=== PATIENT | female | born 1950 | race Caucasian/White ===

== ENCOUNTER 2023-12-15 10:29 | Emergency (ER) | payer MEDICARE, OTHER, SELFPAY ==
[2023-12-15 10:31] VITALS: BP 113/80
[2023-12-15 10:50] VITALS: BMI 26.7
[2023-12-15 10:59] LABS: % Basophils 0.3 % (0-2); % Eosinophils 0.6 % (0-6); % Immature Granulocytes 0.4 % (0-0.5); % Lymphocytes 15.3 % (20.5-51.1); % Monocytes 7.9 % (1.7-9.3); % Neutrophils 75.5 % (42.2-75.2); Absolute Eosinophils 0.1 10^3/uL (0-0.7); Absolute Immature Granulocytes 0.1 10^3/uL (0-0.05); Absolute Lymphocytes 2.1 10^3/uL (1.2-3.4); Absolute Monocytes 1.1 10^3/uL (0.1-0.6); Absolute Neutrophils 10.5 10^3/uL (1.4-6.5); Hematocrit 40.1 % (37.0-47.0); Mean Corp Hgb Conc. 34.9 g/dL (33.0-37.0); Mean Corpuscular Volume 85.9 fL (81.0-99.0); Mean Platelet Volume 8.8 fL (7.4-10.4); Nucleated Red Blood Cells % 0 %; Platelet Count 314 10^3/uL (130-400); Red Blood Cell Count 4.67 10^6/uL (4.20-5.40); Red Cell Dist. Width 12.2 % (11.5-14.5); White Blood Cell Count 13.9 10^3/uL (4.8-10.8)
[2023-12-15 11:07] LABS: Urine Albumin Trace (Neg - Trace); Urine Bilirubin 1+ (Negative); Urine Character Clear (Clear); Urine Color Yellow; Urine Glucose Negative (Negative); Urine Ketone Trace (Negative); Urine Leukocyte 1+ (Negative); Urine Nitrite Negative (Negative); Urine Occult Blood 2+ (Negative); Urine Specific Gravity 1.025 (<1.030); Urine Urobilinogen 1+ (Neg - 1+)
[2023-12-15 11:18] LABS: ALT (SGPT) 19 U/L (0-35); AST (SGOT) 22 U/L (14-36); Albumin 4.5 g/dl (3.5-5.0); Alkaline Phosphatase 92 U/L (38-126); Blood Urea Nitrogen 15 mg/dl (7-17); Calcium 9.6 mg/dl (8.4-10.2); Carbon Dioxide 21 mmol/L (22-30); Chloride 105 mmol/L (98-107); Estimated Creatinine Clearance 64 ml/min; Glucose 119 mg/dl (70-99); Lipase 76 U/L (23-300); Potassium 4.3 mmol/L (3.5-5.1); Sodium 133 mmol/L (135-145); Total Bilirubin 1.1 mg/dl (0.2-1.3); Total Protein 7.4 g/dl (6.3-8.2); eGFR > 60.00
--- NOTE | 2023-12-15 11:27 | ED.GENMED ---
History of Present Illness
General
Chief Complaint: Abdominal Symptoms
Source: patient
Exam Limitations: none
Time Seen by Provider: 12/15/23 10:41
Nursing documentation reviewed up to this point in time: agreed with
Travel History
Have you had any contact with someone who has COVID-19?: No
Do you have any symptoms of coronavirus? Fever > 100 degrees, chills, cough, shortness of breath, sore throat, loss of taste or smell, muscle aches, or headache?: No
History of Present Illness
History of Present Illness:
pt is a 73 y/o F with h/o HTN, HLD, diverticulitis x 1 episode treated with outpatient abx
here with lower abd cramping that started yesterday reminding her of previous divetic
she had a BM but not a usual one, was a little less than normal
she continued to have the cramping in the lower abdomen and didn't get sleep
no diarrhea but had some mucusy stool today
no fever, nauesa, vomiting, urinarys ytpmosm
called her PCP who told her to come for CT.
Past History
Past History
ED Past Medical History: NIDDM, Hypothyroidism and Psychiatric (Bipolar disease)
ED Past Surgical History: Appendectomy, Gynecological (Hysterectomy), Orthopedic (Right shoulder surgery), Tonsilectomy and Other (Acoustic neuroma removal, recent cataract surgery)
Social History
Tobacco: Non-smoker
Alcohol: None
Drug: None
Personal:
Living: with family
Employment: Employed (Nurse at [employer])
Family History
Family History: Diabetes
Review of Systems
Review of Systems
Allergies reviewed?: Yes
All Other Systems: Not applicable
Phy Exam
Physical Exam
Physical Exam:
GENERAL: Alert , in no apparent distress
EYE: pupils equal and reactive
NECK: Supple
ENT: o/p clr, mmm.
CARDIAC: Regular rate and rhythm .
LUNGS: Clear breath sounds bilaterally, no acute respiratory distress, no wheezes/rales/rhonchi
ABDOMEN: Soft, mild lower abd quad tendenress, no r/g, no cvat, normal bowel sounds
NEUROLOGICAL: Alert and oriented, no focal neuro deficits
SKIN: Warm and dry, skin intact.
MUSCULOSKELETAL: No edema, well perfused.
PSYCH: Normal and appropriate interaction.
Course
Orders/Labs/Results
Orders:
Orders
12/15/23 10:53
Complete Blood Count/With Diff Urgent
Comprehensive Metabolic Panel Urgent
Lipase Urgent
12/15/23 11:02
Urinalysis Reflex To Culture Urgent
Date Specimen was Collected: 12/15/23
Time Specimen was Collected: 11:00
Urine Microscopic Reflex Cult Urgent
Urine Culture Urgent
GRIFFIN Source: U
Specimen Description:
Date Specimen was Collected: 12/15/23
Time Specimen was Collected: 11:00
12/15/23 11:17
CT Abd/Pel (IV only)-DH only Urgent
Comment:
Reason For Exam: lower abd pain, h/o divertic
0.9% Sodium Chloride 1000 ml [Nss] 1,000 ml IV BOLUS
Ketorolac [Toradol] 15 mg IV NOW STA
12/15/23 12:31
LevoFLOXacin [Levaquin] 500 mg PO NOW STA
12/15/23 12:32
MetroNIDAZOLE [Flagyl] 500 mg PO NOW STA
12/15/23 12:36
Tramadol HCl [Ultram] 50 mg PO NOW STA
Abnormal Lab Results
12/15/23 12/15/23
10:53 11:02
WBC 13.9 H 10^3/uL
(4.8-10.8)
Abs Immat Gran (auto) 0.1 H 10^3/uL
(0-0.05)
Absolute Neuts (auto) 10.5 H 10^3/uL
(1.4-6.5)
Absolute Monos (auto) 1.1 H 10^3/uL
(0.1-0.6)
Neutrophils % 75.5 H %
(42.2-75.2)
Lymphocytes % 15.3 L %
(20.5-51.1)
Sodium 133 L mmol/L
(135-145)
Carbon Dioxide 21 L mmol/L
(22-30)
Glucose 119 H mg/dl
(70-99)
Urine Ketones Trace A
(Negative)
Ur Occult Blood Reflex 2+ A
(Negative)
Urine Bilirubin 1+ A
(Negative)
Leukocyte Esterase Rfl 1+ A
(Negative)
Urine RBC 3-6 A /HPF
(0-2)
Urine Bacteria (Reflex) Few A
(Negative)
12/15/23 10:53
12/15/23 10:53
Vital Signs
Initial and Last Documented VS:
Initial Vital Signs
Temp Pulse Resp BP Pulse Ox
98.2 F 108 16 113/80 98
12/15/23 10:31 12/15/23 10:31 12/15/23 10:31 12/15/23 10:31 12/15/23 10:31
Last Documented Vital Signs
Temp Pulse Resp BP Pulse Ox
98.2 F 96 16 118/73 97
12/15/23 10:31 12/15/23 11:46 12/15/23 11:46 12/15/23 11:46 12/15/23 11:46
MDM/Problems Addressed
Differential Diagnosis Includes:
diverticulitis, uti
MDM/Problems Addressed:
73 y/o F with h/o diverticulitis one other episode
lower abd cramping reminding her of her divertic
some mucusy nonbloody stool
no fever
minimal lower abdominal tenderness
otherwise normal exam
wbc 13.9
ua iwth some trace signs of infection but no symptoms
ct shows diveritculitis no performation
pain was not controlled with toradol but pt says 3/10 level
she has tolerated tramadol before
will give 1 dose
levaquin and flagyl tolerated preivously
return precautions.l
stable acute exacerbation of divertic, for outpatietn managmenet.
*Critical Care Note
Total Time (30-74mins, 75-104mins- exclusive of procedures): Not Applicable
ED Attending Note
-
Portions of this chart may have been created with voice recognition software.� Occasional wrong word or��sound alike� substitutions may have occurred due to the inherent limitations of voice recognition software.
Discharge Plan
Departure
Patient Disposition: Home (Routine Discharge)
Date of Disposition: 12/15/23
Time of Disposition: 12:51
Patient with high blood pressure during this ER visit?: No
Condition: Fair
Covid-19: Not Applicable
Discharge Problem:
Diverticulitis
Instructions: Clear Liquid Diet, Diverticulitis (DC)
Prescriptions:
New
metronidazole 500 mg tablet
500 mg PO Q8H 7 Days Qty: 21 0RF
levofloxacin 500 mg tablet
500 mg PO DAILY Qty: 6 0RF
No Action
lamotrigine 25 MG tablet, chewable dispersible
100 mg PO QPM
levothyroxine [Synthroid] 100 MCG tablet
150 mcg PO DAILY
metformin 500 MG tablet
250 mg PO .DAILY IN A.M.
pediatric multivitamin 1 EACH tablet,chewable
1 ea PO DAILY
docusate sodium 100 MG capsule
100 mg PO BID
zinc 50 MG tablet
50 mg PO DAILY
sertraline 50 MG tablet
50 mg PO DAILY
cholecalciferol (vitamin D3) [Vitamin D3] 400 UNITS tablet
2,000 units PO DAILY
rosuvastatin 10 MG tablet
10 mg PO QPM
coenzyme Q74-sbccocd E 1 CAP capsule
1 cap PO DAILY
omega 7-eoh-vmp-fish oil [Fish Oil] 1 EACH capsule
1 ea PO DAILY
Metformin HCl
500 mg PO QPM
levofloxacin 500 mg tablet
500 mg PO DAILY 6 Days Qty: 6 0RF
metronidazole 500 mg tablet
500 mg PO TID Qty: 20 0RF
tizanidine [Zanaflex] 4 mg capsule
4 mg PO Q8H PRN (Reason: muscle spasticity) Qty: 7 0RF
Referrals:
Gracy Qurioz CRNP [Family Provider] -
Activity Restrictions/Additional Instructions:
You have diverticulitis. Take Levaquin once a day starting tomorrow for 6 more days Flagyl 3 times a day starting tonight. Eat clear liquid diet over the next 24 hours. For pain you can use Tylenol and ibuprofen. Follow-up with your doctor next
week. Return to the ER for worsening symptoms like fever, severe worsening pain, vomiting, severe diarrhea or any concerns
Interventions
Interventions:
*Risk Screen - Suicide Last Done: 12/15/23 13:08
*General Assessment Last Done: 12/15/23 10:50
*Neglect/Abuse Screening Last Done: 12/15/23 10:50
*ED COVID-19 Vaccine History Last Done: 12/15/23 10:31
*Nursing Disposition Last Done: 12/15/23 13:08
XI-Aiizgd-Kefplzrkko Assessment Last Done: 12/15/23 10:50
Discharge Date and Time
Discharge Date/Time: 12/15/23 13:09
[2023-12-15 11:36] LABS: Urine Bacteria Few (Negative)
[2023-12-15] MEDS: NSS 1000 IV (11:42)
[2023-12-15] MEDS: TORADOL 15 MG IV (11:43)
[2023-12-15 11:46] VITALS: BP 118/73
[2023-12-15] MEDS: LEVAQUIN 500 MG PO (12:40)
[2023-12-15] MEDS: ULTRAM 50 MG PO (12:40)
[2023-12-15] MEDS: FLAGYL 500 MG PO (12:41)
== END 2023-12-15 13:09 | disposition home or self-care (01) ==
LOC: EMR 10:29
PROVIDERS: EMERGENCY PHYSICIAN Emergency Medicine; FAMILY PHYSICIAN Nurse Practitioner Primary Care
DX: K57.32 Diverticulitis of large intestine without perforation or abscess without bleeding (principal); I10 Essential (primary) hypertension; E78.5 Hyperlipidemia, unspecified
CPT/HCPCS: 99285; 96374; 96361; 74177; 80053; 81003; 81015; 83690; 85025; 87086; Q9967

== ENCOUNTER → 2024-03-25 06:20 | Day surgery (SDC) | payer MEDICARE, OTHER, SELFPAY ==
[2024-03-25 07:17] LABS: Glucose - Point of Care 113 mg/dl (70-99)
== END ==
LOC: GI 06:20
PROVIDERS: ATTENDING PHYSICIAN Internal Medicine
DX: K57.32 Diverticulitis of large intestine without perforation or abscess without bleeding (principal); K57.30 Diverticulosis of large intestine without perforation or abscess without bleeding; K64.8 Other hemorrhoids; K63.5 Polyp of colon; K62.3 Rectal prolapse; Z09 Encounter for follow-up examination after completed treatment for conditions other than malignant neoplasm; Z87.19 Personal history of other diseases of the digestive system
CPT/HCPCS: 45385; 88305; 82962

== ENCOUNTER 2024-03-27 12:00 | Emergency (ER) | payer MEDICARE, OTHER, SELFPAY ==
[2024-03-27] VITALS (7 sets, daily range): BP systolic 119–142; BP diastolic 70–81; BMI 26.7
[2024-03-27 13:12] LABS: % Basophils 0.4 % (0-2); % Eosinophils 1.5 % (0-6); % Immature Granulocytes 0.4 % (0-0.5); % Lymphocytes 26.9 % (20.5-51.1); % Monocytes 6.5 % (1.7-9.3); % Neutrophils 64.3 % (42.2-75.2); Absolute Eosinophils 0.1 10^3/uL (0-0.7); Absolute Lymphocytes 2.3 10^3/uL (1.2-3.4); Absolute Monocytes 0.6 10^3/uL (0.1-0.6); Absolute Neutrophils 5.4 10^3/uL (1.4-6.5); Hemoglobin 13.3 g/dL (12.0-16.0); Mean Corpuscular Hgb 29.6 pg (27.0-31.0); Mean Corpuscular Volume 84.6 fL (81.0-99.0); Nucleated Red Blood Cells % 0 %; Platelet Count 274 10^3/uL (130-400); Red Blood Cell Count 4.49 10^6/uL (4.20-5.40); Red Cell Dist. Width 12.3 % (11.5-14.5); White Blood Cell Count 8.5 10^3/uL (4.8-10.8)
[2024-03-27 13:14] LABS: Blood Urea Nitrogen 12 mg/dl (7-17); Calcium 9.5 mg/dl (8.4-10.2); Carbon Dioxide 23 mmol/L (22-30); Chloride 108 mmol/L (98-107); Estimated Creatinine Clearance 85 ml/min; Glucose 102 mg/dl (70-99); Lipase 71 U/L (23-300); Sodium 137 mmol/L (135-145); eGFR > 60.00
--- NOTE | 2024-03-27 13:32 | ED.GENMED ---
History of Present Illness
General
Chief Complaint: Abdominal Symptoms
Source: patient
Exam Limitations: none
Time Seen by Provider: 03/27/24 13:18
History of Present Illness
History of Present Illness:
73-year-old female presents complaining of persistent left lower quadrant pain starting 2 days ago. She had a colonoscopy 2 days ago. Was sent in by GI for CT scan. She notes persistent kind of she notes persistent left lower quadrant abdominal
pain sharp in nature. No urinary symptoms. No fever. No nausea or vomiting. She is moving her bowels. She admitted to have some drops of blood in her bowel when she moved her bowels 2 days ago
Past History
Past History
ED Past Medical History: NIDDM, Hypothyroidism and Psychiatric (Bipolar disease)
ED Past Surgical History: Appendectomy, Gynecological (Hysterectomy), Orthopedic (Right shoulder surgery), Tonsilectomy and Other (Acoustic neuroma removal, recent cataract surgery)
Social History
Tobacco: Non-smoker
Alcohol: None
Drug: None
Personal:
Living: with family
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
Family History
Family History: Diabetes
Phy Exam
Physical Exam
Physical Exam:
General: Well-appearing female no acute respiratory distress
HEENT: Normocephalic atraumatic
Heart: Regular rate and rhythm no murmurs
Lungs: Clear no wheeze or rales
Abdomen soft tender to left lower quadrant no guarding rebound normal bowel sounds
Extremities: No cyanosis
Course
Orders/Labs/Results
Orders:
Orders
03/27/24 12:38
Basic Metabolic Panel Urgent
Complete Blood Count/With Diff Urgent
Lipase Urgent
03/27/24 13:45
CT Abd/pel W Iv And Oral Contr Urgent
Comment:
Reason For Exam: lower abdominal pain, recent colonoscopy
Iohexol [Omnipaque] See Protocol PO NOW STA
03/27/24 13:46
0.9% Sodium Chloride 1000 ml [Nss] 1,000 ml IV BOLUS
03/27/24 13:55
Urinalysis Reflex To Culture Urgent
Date Specimen was Collected: 03/27/24
Time Specimen was Collected: 13:54
Urine Microscopic Reflex Cult Urgent
Abnormal Lab Results
03/27/24 03/27/24
12:38 13:55
Chloride 108 H mmol/L
(98-107)
Glucose 102 H mg/dl
(70-99)
Leukocyte Esterase Rfl Trace A
(Negative)
03/27/24 12:38
03/27/24 12:38
Vital Signs
Initial and Last Documented VS:
Initial Vital Signs
Temp Pulse Resp BP Pulse Ox
98.0 F 78 16 141/81 97
03/27/24 12:01 03/27/24 12:01 03/27/24 12:01 03/27/24 12:01 03/27/24 12:01
Last Documented Vital Signs
Temp Pulse Resp BP Pulse Ox
98.0 F 74 13 142/80 97
03/27/24 12:01 03/27/24 17:00 03/27/24 17:00 03/27/24 17:00 03/27/24 17:00
MDM/Problems Addressed
Differential Diagnosis Includes:
Left lower quadrant tenderness and pain following colonoscopy 2 days ago. Sent in by GI for CT scan with oral and IV contrast. This was ordered. Labs pending
Consider diverticulitis versus UTI versus perforation
*Critical Care Note
Total Time (30-74mins, 75-104mins- exclusive of procedures): Not Applicable
Update Note
Update Note:
CT demonstrates acute uncomplicated mild diverticulitis. Discussed with patient and GI. Will send patient home on Augmentin. Stable for discharge
ED Attending Note
-
Portions of this chart may have been created with voice recognition software.� Occasional wrong word or��sound alike� substitutions may have occurred due to the inherent limitations of voice recognition software.
Discharge Plan
Departure
Patient Disposition: Home (Routine Discharge)
Date of Disposition: 03/27/24
Time of Disposition: 17:48
Patient with high blood pressure during this ER visit?: No
Discharge Problem:
Acute diverticulitis
Instructions: Diverticulitis (DC)
Prescriptions:
New
amoxicillin-pot clavulanate 875-125 mg tablet
1 tab PO BID Qty: 20 0RF
No Action
metformin 500 MG tablet
500 mg PO BID
docusate sodium 100 MG capsule
100 mg PO BID
sertraline 50 MG tablet
50 mg PO DAILY
rosuvastatin 10 MG tablet
10 mg PO QPM
Theragen Tablet
1 tab PO QPM
acetaminophen [Tylenol Extra Strength] 500 mg Tablet
1,000 mg PO DAILYPRN PRN (Reason: mild pain)
calcium carbonate [Calcium 600] 600 mg calcium (1,500 mg) Tablet
600 mg PO QPM
lisinopril 10 mg Tablet
10 mg PO DAILY
levothyroxine 150 mcg Tablet
150 mcg PO MOTUWETHFR
levothyroxine 150 mcg Tablet
75 mcg PO SA
estradiol 0.01 % (0.1 mg/gram) Cream
1 applic VAGINAL DAILYPRN PRN (Reason: irritation)
lamotrigine 100 mg Tablet
100 mg PO QPM
coenzyme Q10 [CoQ-10] 30 mg Capsule
30 mg PO QPM
cholecalciferol (vitamin D3) [Vitamin D3] 25 mcg (1,000 unit) Tablet
25 mcg PO BID
Trulicity 0.75 mg/0.5 mL Pen Injector
0.75 mg SC WE
Referrals:
Gracy Quiroz CRNP [Family Provider] -
Activity Restrictions/Additional Instructions:
Drink plenty clear liquids. Use Augmentin as directed. Return if worse otherwise follow-up with your GI doctor
Interventions
Interventions:
*Risk Screen - Suicide Last Done: 03/27/24 12:27
*General Assessment Last Done: 03/27/24 12:01
*Neglect/Abuse Screening Last Done: 03/27/24 12:27
ED- Fall Risk Assessment Last Done: 03/27/24 12:27
*ED COVID-19 Vaccine History Last Done: 03/27/24 12:01
OM-Shpzww-Cjcvawalwu Assessment Last Done: 03/27/24 12:27
Discharge Date and Time
Print Language: KOREAN
[2024-03-27] MEDS: OMNIPAQUE 50 ML PO (13:51)
[2024-03-27] MEDS: NSS 1000 IV (13:52)
[2024-03-27 14:39] LABS: Urine Albumin Negative (Neg - Trace); Urine Bilirubin Negative (Negative); Urine Character Clear (Clear); Urine Color Yellow; Urine Glucose Negative (Negative); Urine Ketone Negative (Negative); Urine Leukocyte Trace (Negative); Urine Nitrite Negative (Negative); Urine Occult Blood Negative (Negative); Urine Urobilinogen Negative (Neg - 1+)
[2024-03-27 14:53] LABS: Urine Red Blood Cell 0-2 /HPF (0-2); Urine White Cell 0-2 /HPF (0-5)
== END 2024-03-27 18:03 | disposition home or self-care (01) ==
LOC: EMR 12:00
PROVIDERS: Physician Assistant; EMERGENCY PHYSICIAN Emergency Medicine; FAMILY PHYSICIAN Nurse Practitioner Primary Care
DX: K57.92 Diverticulitis of intestine, part unspecified, without perforation or abscess without bleeding (principal); E11.9 Type 2 diabetes mellitus without complications; E03.9 Hypothyroidism, unspecified; F31.9 Bipolar disorder, unspecified; Z83.3 Family history of diabetes mellitus; Z90.49 Acquired absence of other specified parts of digestive tract; Z90.710 Acquired absence of both cervix and uterus
CPT/HCPCS: 99284; 96360; 74177; 80048; 81003; 81015; 83690; 85025; Q9967

== ENCOUNTER 2024-05-09 08:24 | Emergency (ER) | payer MEDICARE, OTHER, SELFPAY ==
[2024-05-09 08:27] VITALS: BP 137/93
[2024-05-09] MEDS: ZOFRAN 4 MG IV (09:18)
[2024-05-09] MEDS: PROTONIX IV 40 MG IV (09:18)
[2024-05-09] MEDS: DILAUDID 0.5 MG IV (09:18)
[2024-05-09] MEDS: NSS 1000 IV (09:18)
--- NOTE | 2024-05-09 09:22 | ED.GENMED ---
History of Present Illness
General
Chief Complaint: Abdominal Pain
Source: patient, previous radiology exam and previous hospital records
Exam Limitations: none
Time Seen by Provider: 05/09/24 08:30
Nursing documentation reviewed up to this point in time: agreed with
History of Present Illness
History of Present Illness:
74-year-old female history of diverticulitis 3 prior episodes status post appendectomy presents with lower abdominal pain cramping and nausea symptoms initially mild improved and worsened last night feels indigestion, possibly felt chilled with
fevers, occasionally uses MiraLAX to move her bowels, no blood in her stools no shortness of breath
After one of her prior episode she saw her cafe cook performed a colonoscopy
Past History
Past History
ED Past Medical History: NIDDM, Hypothyroidism and Psychiatric (Bipolar disease)
ED Past Surgical History: Appendectomy, Gynecological (Hysterectomy), Orthopedic (Right shoulder surgery), Tonsilectomy and Other (Acoustic neuroma removal, recent cataract surgery)
Social History
Tobacco: Non-smoker
Alcohol: None
Drug: None
Personal:
Living: with family
Employment: Employed (Nurse at [employer])
Family History
Family History: Diabetes
Review of Systems
Review of Systems
All Other Systems: Not applicable
Constitutional: Reports fever and chills
EENT: Reports no symptoms
Respiratory: Reports no symptoms
ABD/GI: Reports abdominal pain, nausea and pain
: Reports no symptoms
Musculoskeletal: Reports no symptoms
Skin: Reports no symptoms
Neurological: Reports no symptoms
Endocrine: Reports no symptoms
Phy Exam
Physical Exam
Physical Exam:
Physical Exam
General: no apparent distress, not acutely ill
Neck:no jaundice
Heart: s1/s2 regular rate and rhythm, no murmur. equal radial pulses.
Lungs: no acute respiratory distress. clear bilaterally
Abdomen: Soft localized tenderness in the left lower abdomen
Neuro: alert and oriented. no focal neurological deficits
Skin: no rash
Psychiatric: well kept. interactive and cooperative
Extremities: no edema
Course
Orders/Labs/Results
Orders:
Orders
05/09/24 09:07
Electrocardiogram (*1) Stat
Reason for Study: Abdominal Pain
CT Abd/Pel (IV only)-[facility] only Urgent
Comment:
Reason For Exam: llq pain
EKG- Treatment ONCE
IV Insert/Care/Rem.- Treatment PRN
0.9% Sodium Chloride 1000 ml [Nss] 1,000 ml IV BOLUS
HYDROmorphone [Dilaudid] 0.5 mg IV NOW STA
Ondansetron Injectable [Zofran] 4 mg IV NOW STA
Pantoprazole [Protonix IV] 40 mg IV NOW STA
05/09/24 09:16
Complete Blood Count/With Diff Urgent
Comprehensive Metabolic Panel Urgent
Abnormal Lab Results
05/09/24
09:16
WBC 12.5 H 10^3/uL
(4.8-10.8)
Absolute Neuts (auto) 9.3 H 10^3/uL
(1.4-6.5)
Absolute Monos (auto) 1.0 H 10^3/uL
(0.1-0.6)
Lymphocytes % 15.7 L %
(20.5-51.1)
Chloride 109 H mmol/L
(98-107)
Carbon Dioxide 20 L mmol/L
(22-30)
Glucose 128 H mg/dl
(70-99)
05/09/24 09:16
05/09/24 09:16
Vital Signs
Initial and Last Documented VS:
Initial Vital Signs
Temp Pulse Resp BP Pulse Ox
99.5 F 117 16 137/93 98
05/09/24 08:27 05/09/24 08:27 05/09/24 08:27 05/09/24 08:27 05/09/24 08:27
Last Documented Vital Signs
Temp Pulse Resp BP Pulse Ox
99.5 F 65 16 124/70 95
05/09/24 08:27 05/09/24 10:00 05/09/24 10:00 05/09/24 10:09 05/09/24 10:10
MDM/Problems Addressed
Differential Diagnosis Includes:
Diverticulitis, bowel obstruction nonspecific abdominal pain urinary tract pathology
MDM/Problems Addressed:
Abdominal pain
Chronic conditions affecting care: Previous abdomnial surgery
Acute Exacerbation and/or Progression of Chronic Illness:
Diverticular disease
Acute Exacerbation and/or Progression of Chronic Illness: Previous abdomnial surgery
*Radiology
Radiology exam reviewed: preliminary read by ED provider and radiology read reviewed
*Pulse Oximetry
Patient hypoxic: no
*EKG
Interpreted by ED Provider?: Yes
Interpretation: normal
Comparison EKG: no comparison EKG present
Heart Rate: 78
Rate: normal
Ischemia: no ischemia
*Sandwich Maker Interpretation
Rate: normal
Interpretation: normal
Heart Rate: 78
Rhythm: sinus
*Critical Care Note
Total Time (30-74mins, 75-104mins- exclusive of procedures): Not Applicable
Update Note
Update Note:
Update labs noted CAT scan noted patient appears comfortable reviewed results with patient tells me she does not really tolerate Levaquin and Flagyl she prefers Augmentin
I will give her the number of colorectal surgery to follow-up with, ER for worsening symptoms
ED Attending Note
-
Portions of this chart may have been created with voice recognition software.� Occasional wrong word or��sound alike� substitutions may have occurred due to the inherent limitations of voice recognition software.
Discharge Plan
Departure
Patient Disposition: Home (Routine Discharge)
Date of Disposition: 05/09/24
Time of Disposition: 10:41
Patient with high blood pressure during this ER visit?: No
Condition: Good
Discharge Problem:
Diverticulitis
Instructions: Diverticulitis (DC)
Prescriptions:
New
amoxicillin-pot clavulanate 875-125 mg tablet
1 tab PO Q12H Qty: 20 0RF
ondansetron 4 mg tablet,disintegrating
4 mg PO Q8H PRN (Reason: nausea and vomiting) Qty: 14 0RF
No Action
metformin 500 MG tablet
500 mg PO BID
docusate sodium 100 MG capsule
100 mg PO BID
sertraline 50 MG tablet
50 mg PO DAILY
rosuvastatin 10 MG tablet
10 mg PO QPM
Theragen Tablet
1 tab PO QPM
acetaminophen [Tylenol Extra Strength] 500 mg Tablet
1,000 mg PO DAILYPRN PRN (Reason: mild pain)
calcium carbonate [Calcium 600] 600 mg calcium (1,500 mg) Tablet
600 mg PO QPM
lisinopril 10 mg Tablet
10 mg PO DAILY
levothyroxine 150 mcg Tablet
150 mcg PO MOTUWETHFR
levothyroxine 150 mcg Tablet
75 mcg PO SA
estradiol 0.01 % (0.1 mg/gram) Cream
1 applic VAGINAL DAILYPRN PRN (Reason: irritation)
lamotrigine 100 mg Tablet
100 mg PO QPM
coenzyme Q10 [CoQ-10] 30 mg Capsule
30 mg PO QPM
cholecalciferol (vitamin D3) [Vitamin D3] 25 mcg (1,000 unit) Tablet
25 mcg PO BID
Trulicity 0.75 mg/0.5 mL Pen Injector
0.75 mg SC WE
amoxicillin-pot clavulanate 875-125 mg tablet
1 tab PO BID Qty: 20 0RF
Referrals:
Gracy Quiroz CRNP [Family Provider] -
Ish Esparza MD [Active] - Next open appointment
Activity Restrictions/Additional Instructions:
Tylenol or ibuprofen for pain
Antibiotics as prescribed, take with yogurt or a probiotic
Call Dr. Esparza or his associates from colorectal surgery to discuss your recurrent symptoms and arrange follow-up care
Interventions
Interventions:
*Risk Screen - Suicide Last Done: 05/09/24 08:27
*General Assessment Last Done: 05/09/24 08:27
*Neglect/Abuse Screening Last Done: 05/09/24 08:27
ED- Fall Risk Assessment Last Done: 05/09/24 09:22
*ED COVID-19 Vaccine History Last Done: 05/09/24 08:35
MQ-Qzsats-Rdomscyjwi Assessment Last Done: 05/09/24 08:36
Discharge Date and Time
Print Language: UKRAINIAN
[2024-05-09 09:26] LABS: % Basophils 0.2 % (0-2); % Immature Granulocytes 0.2 % (0-0.5); % Lymphocytes 15.7 % (20.5-51.1); % Monocytes 7.9 % (1.7-9.3); Absolute Eosinophils 0.1 10^3/uL (0-0.7); Absolute Neutrophils 9.3 10^3/uL (1.4-6.5); Hematocrit 37.7 % (37.0-47.0); Hemoglobin 13.3 g/dL (12.0-16.0); Mean Corp Hgb Conc. 35.3 g/dL (33.0-37.0); Mean Corpuscular Volume 84.9 fL (81.0-99.0); Mean Platelet Volume 8.8 fL (7.4-10.4); Nucleated Red Blood Cells % 0 %; Platelet Count 279 10^3/uL (130-400); Red Blood Cell Count 4.44 10^6/uL (4.20-5.40); Red Cell Dist. Width 12.3 % (11.5-14.5); White Blood Cell Count 12.5 10^3/uL (4.8-10.8)
[2024-05-09 09:38] LABS: ALT (SGPT) 18 U/L (0-35); AST (SGOT) 20 U/L (14-36); Albumin 4.3 g/dl (3.5-5.0); Alkaline Phosphatase 79 U/L (38-126); Blood Urea Nitrogen 10 mg/dl (7-17); Calcium 9.8 mg/dl (8.4-10.2); Carbon Dioxide 20 mmol/L (22-30); Chloride 109 mmol/L (98-107); Glucose 128 mg/dl (70-99); Potassium 4.1 mmol/L (3.5-5.1); Sodium 137 mmol/L (135-145); Total Bilirubin 0.8 mg/dl (0.2-1.3); Total Protein 6.8 g/dl (6.3-8.2); eGFR > 60.00
[2024-05-09 10:09] VITALS: BP 124/70
== END 2024-05-09 11:09 | disposition home or self-care (01) ==
LOC: EMR 08:24
PROVIDERS: EMERGENCY PHYSICIAN Emergency Medicine; FAMILY PHYSICIAN Nurse Practitioner Primary Care
DX: K57.92 Diverticulitis of intestine, part unspecified, without perforation or abscess without bleeding (principal); R11.0 Nausea; F31.9 Bipolar disorder, unspecified; E03.9 Hypothyroidism, unspecified; I10 Essential (primary) hypertension; E11.36 Type 2 diabetes mellitus with diabetic cataract; E78.5 Hyperlipidemia, unspecified; Z87.891 Personal history of nicotine dependence; Z87.442 Personal history of urinary calculi; Z79.84 Long term (current) use of oral hypoglycemic drugs; Z88.5 Allergy status to narcotic agent
CPT/HCPCS: 99285; 96375 ×2; 96361; 96374; 74177; 80053; 85025; 93005; Q9967

== ENCOUNTER → 2024-09-12 14:04 | Outpatient (REF) | payer MEDICARE, OTHER, SELFPAY | LOC: HWRAD 14:04 | PROVIDERS: ATTENDING PHYSICIAN Nurse Practitioner Primary Care | DX: M85.89 Other specified disorders of bone density and structure, multiple sites (principal) | CPT/HCPCS: 77080 ==

== ENCOUNTER → 2024-11-14 16:35 | Outpatient (REF) | payer MEDICARE, OTHER, SELFPAY ==
[2024-11-14 18:07] LABS: ALT (SGPT) 21 U/L (0-35); AST (SGOT) 23 U/L (14-36); Albumin 4.4 g/dl (3.5-5.0); Alkaline Phosphatase 68 U/L (38-126); Blood Urea Nitrogen 14 mg/dl (7-17); Calcium 9.8 mg/dl (8.4-10.2); Carbon Dioxide 27 mmol/L (22-30); Chloride 103 mmol/L (98-107); Glucose 80 mg/dl (70-99); Potassium 4.4 mmol/L (3.5-5.1); Sodium 136 mmol/L (135-145); Total Bilirubin 0.4 mg/dl (0.2-1.3); eGFR > 60.00
[2024-11-14 18:15] LABS: % Basophils 0.6 % (0-2); % Eosinophils 1.5 % (0-6); % Immature Granulocytes 0.5 % (0-0.5); % Lymphocytes 30.5 % (20.5-51.1); % Monocytes 7.3 % (1.7-9.3); % Neutrophils 59.6 % (42.2-75.2); Absolute Basophils 0.1 10^3/uL (0-0.2); Absolute Eosinophils 0.1 10^3/uL (0-0.7); Absolute Lymphocytes 2.6 10^3/uL (1.2-3.4); Absolute Monocytes 0.6 10^3/uL (0.1-0.6); Absolute Neutrophils 5.1 10^3/uL (1.4-6.5); Hematocrit 39.9 % (37.0-47.0); Hemoglobin 13.2 g/dL (12.0-16.0); Mean Corp Hgb Conc. 33.1 g/dL (33.0-37.0); Mean Corpuscular Hgb 29.4 pg (27.0-31.0); Mean Corpuscular Volume 88.9 fL (81.0-99.0); Mean Platelet Volume 9.2 fL (7.4-10.4); Nucleated Red Blood Cells % 0 %; Platelet Count 273 10^3/uL (130-400); Red Blood Cell Count 4.49 10^6/uL (4.20-5.40); Red Cell Dist. Width 12.2 % (11.5-14.5); White Blood Cell Count 8.6 10^3/uL (4.8-10.8)
== END ==
LOC: REG 16:35
PROVIDERS: ATTENDING PHYSICIAN Nurse Practitioner Family
DX: R35.0 Frequency of micturition (principal); Z87.19 Personal history of other diseases of the digestive system
CPT/HCPCS: 36415; 80053; 85025